=== PATIENT | female | born 1985 | race Caucasian/White ===

== ENCOUNTER 2016-04-19 10:48 | Day surgery (SDC) | payer MEDICAID ==
[~2016-04-19] VITALS: Ht 165.1 cm; Wt 80.3 kg
[~2016-04-19 10:48] MED LIST: ABILIFY10 MG; AEROCHAMBER1 DEV IH; ALBUTEROL2 PUFFS/17 IN; AMOXICOT500 MG PO; ATIVAN1 MG PO; BACTRIM DS 8001 TA1 PO; BACTRIM DS 8001 TAB PO; BACTROBAN2% TP; BENZONATATE100 MG PO; CEPHALEXIN500 MG PO; CIPRO 500MG TA500 MG PO; CYMBALTA60 MG PO; FLAGYL 500MG.500 MG PO; KEFLEX 500MG.500 MG PO; LORAZEPAM0.5 MG/TAB PO; LORTAB 5/500 501 TAB PO; MEDROL 4MG. DOSE4 MG PO; NAPROSYN500 M1 PO; NOMEDS XX; PHENERGAN25 M3 PO; PREDNISONE 10MG10 MG PO; PROPRANOLOL HCL20 MG PO; TESSALON PERLE200 MG PO; TRAZODONE 50MG50 MG; VIBRAMYCIN 100100 MG PO; VICODIN 5/500 T1 TAB PO; VISTARIL25 MG PO; VOLTAREN75 MG PO; WELLBUTRIN 150150 MG; WELLBUTRIN 150150 MG PO; WELLBUTRIN 75MG75 MG PO; ZYRTEC-D 12HR 51 TER PO
--- NOTE | 2016-04-19 12:35 | Operative Note ---
See Addendum Colonoscopy Procedure date: 04/19/16 Date of : 81 Procedure:Colonoscopy WITH POLYPECTOMY/BIOPSY Indications: Diarrhea Performing Provider: Beck Campbell Referrring Provider: ALAN Yo Sedation: Benadryl 50mg IV, versed 9mg, fentanyl 150mcg then convereted to MAC Procedure: Prior to the procedure, a history and physical exam was performed, and patient medications and allergies were reviewed. The risks and benefits of the procedure and the sedation options and risks were discussed with the patient. All questions were answered and informed consent was obtained. The patient was brought to the procedure room. Patient identification and proposed procedure were verified by the physician and the nurse. The patient was placed in a left lateral decubitus position and the scope was passed under direct vision. Throughout the procedure, the patient's blood pressure, pulse, and oxygen saturations were monitored continuously. The colonoscope was introduced through the anus and advanced to the terminal ileum with identification of the appendiceal orifice and ileocecal valve. The colonoscopy was performed without difficulty. The patient tolerated the procedure well. The quality of the bowel preparation was good. Findings: 1) TI normal - biopsied 2) Colon normal - biopsied, random 3) Two 4-5mm polyps sigmoid removed w/ snare polypectomy (cold) and retrieved 4) Retroflexed exam normal in rectum Immediate complications: None EBL (ml): 2 Impression: 1) Benign polyps in sigmoid/ f/u path 2) Normal colon Recommendations: 1) f/u pathology - repeat in 5-10 yr depending pn pathology 2) follow FODMAP diet, consider imodium regular dosing at 9535
[2016-04-19 14:18] VITALS: BP 107/69
== END 2016-04-19 13:21 | disposition home or self-care (01) ==
LOC: SDC 10:48
PROVIDERS: Internal Medicine Gastroenterology
PROC: 0DBB8ZX Excision of Ileum, Via Natural or Artificial Opening Endoscopic, Diagnostic (ICD-10-PCS; 2016-04-19)
PROC: 0DBE8ZX Excision of Large Intestine, Via Natural or Artificial Opening Endoscopic, Diagnostic (ICD-10-PCS; 2016-04-19)
PROC: 0DBN8ZX Excision of Sigmoid Colon, Via Natural or Artificial Opening Endoscopic, Diagnostic (ICD-10-PCS; principal; 2016-04-19 12:00)
DX: D12.5 Benign neoplasm of sigmoid colon (principal); R19.7 Diarrhea, unspecified

== ENCOUNTER 2016-12-05 08:59 | Emergency (ER) | payer MEDICAID ==
[~2016-12-05] VITALS: Ht 162.6 cm; Wt 72.6 kg
[~2016-12-05 08:59] MED LIST changes: +BROMFED DM COU118 ML PO; +BUSPAR 10MG TAB10 MG PO; +FLONASE 50 MCG16 GM; +PROZAC 20MG CAP20 MG PO; +SEROQUEL 25MG T25 MG PO; +VISTARIL25 M1 PO; +ZANTAC 150150 MG PO; +ZITHROMAX Z PA250 MG PO
--- OUTSIDE RECORDS SUMMARY | 2016-12-05 09:06 | External Medical Summary Rpt | CCD ---
Demographics Preferred Language Malaysian Marital Status Unknown Uatsdin Affiliation Unknown Race Unknown Ethnic Group Unknown Author Author LAZARUS Address Unknown Phone [email or web address] Purpose Continuity of Care Document - through 2016
--- OUTSIDE RECORDS SUMMARY | 2016-12-05 09:06 | External Medical Summary Rpt | CCD ---
Author Author , LAZARUS QIU Address Unknown Phone [email or web address] Care Team Providers Care Financial Operations Consultant Name Role Phone LILIBETH ANDREWS MD, Unavailable Unavailable LILIBETH Huntley III, MD, Filemon Schwartz III, MD Purpose Continuity of Care Document - 10-24-2012 through 2016 Problems Code Diagnosis DOS Provider Status 305.1 305.1 01-28-2013 [place] TOBACCO USE [facility] 558.9 558.9 01-28-2013 [facility] IT NEC 466.0 466.0 ACUTE 10-24-2012 [facility] F41.9 ANXIETY DISORDER, UNSPECIFIED H66.91 OTITIS MEDIA, UNSPECIFIED , RIGHT EAR K52.9 NONINFECTIV E GASTROENTER ITIS AND COLITIS, UNSPECIFIED M76.62 ACHILLES TENDINITIS, LEFT LEG R00.2 PALPITATION S R07.89 OTHER CHEST PAIN Allergies, Adverse Reactions, Alerts Type Allergy to substance Adverse Reaction to Substance Substance Reaction Severity INGREDIENT: NO KNOWN Unknown Unknown - NO KNOWN DRUG ALLERGY Medications Na ND Rx Da Fi Fi Am Da Di Ph RX Ph St me C No te ll ll ou ys ag ar # ys at rm s nt no ma ic us Or Da si cy ia de te s n re d ON 00 12 0 No DA 37 -1 NS 87 7- Lo ET 73 20 ng RO 29 13 er N 3 OD Ac T ti 4 ve MG TA BL ET Vital Signs 01-28-2013 09:03 Name Value Interpretat Reference Comment ion Range BP 72 mm[Hg] Diastolic BP Systolic 132 mm[Hg] Heart 110 /min Rate/Pulse O2% 96 % Respiratory 20 /min Rate 01-28-2013 08:30 Name Value Interpretat Reference Comment ion Range BP 88 mm[Hg] Diastolic BP Systolic 117 mm[Hg] Heart 106 /min Rate/Pulse O2% 96 % Respiratory 20 /min Rate 10-24-2012 18:55 Name Value Interpretat Reference Comment ion Range Body 98.5 [degF] Temperature BP 78 mm[Hg] Diastolic BP Systolic 134 mm[Hg] Heart 83 /min Rate/Pulse O2% 99 % Respiratory 17 /min Rate 10-24-2012 18:53 Name Value Interpretat Reference Comment ion Range Body 98.5 [degF] Temperature BP 78 mm[Hg] Diastolic BP Systolic 134 mm[Hg] Heart 83 /min Rate/Pulse O2% 99 % Respiratory 17 /min Rate Results Labs Lab Lab Date Result Refere Interp Status Commen Order Detail nces retati t Range on Streptococcus pyogenes Ag [Presence] in Unspecified specimen (06-29-2016 10:39) Strepto NOT NOTDETE complet coccus 0[address] ed pyogene 10:39 D s Ag [Presen ce] in Unspeci fied specime n B-HCG Ur Ql (01-28-2013 08:35) B-HCG 12-17-2 NEGATIV NEG complet Ur Ql 013 E ed 08:35 URINALYSIS/COMPLETE (01-28-2013 08:35) URINE 12-17-2 YELLOW YELLOW complet COLOR 013 ed 08:35 URINE 12-17-2 CLEAR CLEAR complet APPEARA 013 ed NCE 08:35 URINE 12-17-2 NEGATIV NEG complet GLUCOSE 013 E ed - 08:35 DIPSTIC K URINE 12-17-2 NEGATIV NEG complet BILIRUB 013 E ed IN - 08:35 DIPSTIC K URINE 12-17-2 NEGATIV NEG complet KETONE 013 E mg/dL ed 08:35 URINE 12-17-2 1.015 1.005-1 complet SPECIFI 013 UNK .030 ed C 08:35 GRAVITY URINE 12-17-2 NEGATIV NEG complet BLOOD 013 E ed 08:35 URINE 12-17-2 8.0 UNK 5.0-8.5 complet PH 013 ed 08:35 URINE 12-17-2 TRACE NEG complet PROTEIN 013 mg/dL ed - 08:35 DIPSTIC K URINE 12-17-2 0.2 NEG complet UROBILI 013 E.U./dL ed NOGEN - 08:35 DIPSTIC K URINE 12-17-2 NEGATIV NEG complet NITRATE 013 E ed - 08:35 DIPSTIC K URINE 01-28- NEGATIV NEG complet LEUK 013 E ed ESTERAS 08:35 E URINE 01-28- OCC 0 complet RBC 013 rbc/hpf ed 08:35 URINE 01-28-2 3-5 O complet WBC 013 wbc/hpf ed 08:35 URINE 01-28- 3-5 0-5 complet SQUAMOU 013 #/hpf ed S CELLS 08:35 Encounters Encounter Start End Date Code Location Performer Type Date Emergency PHOEBE ANDREWS MD (ER) 3 08:24 3 09:05 [facility] Emergency PHOEBE Schwartz (ER) 3 18:46 3 18:55 [place] Filemon Marvin
--- OUTSIDE RECORDS SUMMARY | 2016-12-05 09:06 | External Medical Summary Rpt | CCD ---
Demographics Preferred Language Vietnamese Marital Status Unknown Islam Affiliation Unknown Race Unknown Ethnic Group Unknown Author Author LAZARUS Address Unknown Phone [email or web address] Purpose Continuity of Care Document - through 2016
--- OUTSIDE RECORDS SUMMARY | 2016-12-05 09:06 | External Medical Summary Rpt | CCD ---
Author Author , LAZARUS QIU Address Unknown Phone [email or web address] Care Team Providers Care Distillery Supervisor Name Role Phone LILIBETH ANDREWS MD, Unavailable Unavailable LILIBETH Huntley III, MD, Filemon Schwartz III, MD Purpose Continuity of Care Document - 10-24-2012 through 2016 Problems Code Diagnosis DOS Provider Status 305.1 305.1 01-28-2013 [place] TOBACCO USE [facility] 558.9 558.9 01-28-2013 [facility] IT NEC 466.0 466.0 ACUTE 10-24-2012 [facility] F41.9 ANXIETY DISORDER, UNSPECIFIED H66.91 OTITIS MEDIA, [...] ANDREWS MD (ER) 3 08:24 3 09:05 [facility] Emergency PHOEBE Schwartz (ER) 3 18:46 3 18:55 [facility] Filemon Marvin
--- OUTSIDE RECORDS SUMMARY | 2016-12-05 09:07 | External Medical Summary Rpt | CCD ---
Demographics Preferred Language Danish Marital Status Unknown Faith Affiliation Unknown Race Unknown Ethnic Group Unknown Author Author , LAZARUS QIU Address Unknown Phone Immunization Unable to retrieve immunization data due to connection failure with Immunization Registry. Please try again later.
--- OUTSIDE RECORDS SUMMARY | 2016-12-05 09:07 | External Medical Summary Rpt ---
Author Author LAZARUS Magdalene, [employer] Organization [employer] Address Unknown Phone Unavailable Results CBC W Auto Differential panel in Blood Observa Value Referen Units Interpr Notes Date tion ce etation Range Basophils 0 - 0.2 K/MM3 Normal No Sep 14 inform2016 1:30 [#/volume on in PM ] in source Blood by data Automated count Basophils 0.1 - 2.0 % Normal No Sep 14 /100 informati 2016 1:30 leukocyte on in PM s in source Blood by data Automated count Eosinophi 0.0 - 0.4 K/mm3 Normal No Sep 14 ls ati 2016 1:30 [#/volume on in PM ] in source Blood by data Automated count Eosinophi 0.1 - % Normal No Sep 14 ls/100 12.0 informati 2016 1:30 leukocyte on in PM s in source Blood by data Automated count Granulocy 1.8 - 7.8 K/mm3 Normal No Sep 14 marcelino informati 2016 1:30 [#/volume on in PM ] in source Blood by data Automated count Granulocy 37.0 - % Normal No Sep 14 marcelino/100 80.0 informati 2016 1:30 leukocyte on in PM s in source Blood by data Automated count Hematocri 37.0 - % Normal No Sep 14 t [Volume 47.0 ati 2016 1:30 on in PM Fraction] source of Blood data Hemoglobi 12.2 - g/dL Normal No Sep 14 n 16.2 informati 2016 1:30 [Mass/vol on in PM ume] in source Blood data Lymphocyt 0.7 - 4.5 K/mm3 Normal No Sep 14 es informati 2016 1:30 [#/volume on in PM ] in source Unspecifi data ed specimen by Automated count Lymphocyt 10 - 50.0 % Normal No Sep 14 es informati 2016 1:30 [#/volume on in PM ] in source Unspecifi data ed specimen by Automated count Erythrocy 27 - 31.2 pg High No Sep 14 te mean informati 2016 1:30 corpuscul on in PM ar source hemoglobi data n [Entitic mass] Erythrocy 31.8 - g/dl Normal No Sep 14 te mean 35.4 informati 2016 1:30 corpuscul on in PM ar source hemoglobi data n concentra tion [Mass/vol ume] by Automated count Erythrocy 82.2 - fl Normal No Sep 14 te mean 97.8 informati 2016 1:30 corpuscul on in PM ar volume source [Entitic data volume] by Automated count Monocytes 0.1 - 1.0 K/mm3 Normal No Sep 14 informati 2016 1:30 [#/volume on in PM ] in source Blood by data Automated count Monocytes 1.7 - 9.3 % Normal No Sep 14 /100 informati 2016 1:30 leukocyte on in PM s in source Blood by data Automated count Platelet 7.4 - fl Low No Sep 14 mean 10.4 informati 2016 1:30 volume on in PM [Entitic source volume] data in Blood by Automated count Platelets 142 - 424 K/mm3 Normal No Sep 14 informati 2016 1:30 [#/volume on in PM ] in source Blood data Erythrocy 4.2 - 5.4 M/mm3 Normal No Sep 3 marcelino informati 2016 1:30 [#/volume on in PM ] in source Amniotic data fluid Erythrocy 11.5 - % Normal No Sep 14 te 17.5 informati 2016 1:30 distribut on in PM ion width source [Entitic data volume] by Automated count Leukocyte 4.8 - K/MM3 Normal No Sep 14 s 10.8 informati 2016 1:30 [#/volume on in PM ] in source Blood data Streptococcus pyogenes Ag [Presence] in Unspecified specimen Observa Value Referen Units Interpr Notes Date tion ce etation Range Strepto NOT NOTDETE No No LOT # June 18 coccus DETECTE CTED informa informa N/A EXP 2017 pyogene D tion in tion in DATE 10:39 s Ag source source N/A AM [Presen data data ce] in Unspeci fied specime n
--- OUTSIDE RECORDS SUMMARY | 2016-12-05 09:07 | External Medical Summary Rpt | CCD ---
Demographics Preferred Language Irish Marital Status Unknown Hoahaoism Affiliation Unknown Race Unknown Ethnic Group Unknown Author Author , LAZARUS QIU Address Unknown Phone Immunization Unable to retrieve immunization data due to connection failure with Immunization Registry. Please try again later.
[2016-12-05] MEDS ORDERED: SUDAFED 12HR120 MG PO (09:42)
[2016-12-05] MEDS ORDERED: AUGMENTIN 875-1 EACH PO (09:42)
--- NOTE | 2016-12-05 09:44 | Urgent Treatment Center Report ---
History of Present Issue Date/Time Seen by Provider 12/05/16 4100 Visit Reason Pt arrived:Walked Presenting Problem:PT IS C/O OF FLUID BEHIND LEFT EAR AND THE RIGHT EAR HAS STARTED RINGING THIS AM. PT HAD DENTAL PROCEDURE LAST WEEK. PT HAS TAKEN ZYRTEC , FLONASE, AND AMOXICILLIN. Location if Accident: Onset of symptoms date/time:/ or onset unknown for:MEDICAL HX UNKNOWN Have you (or family members/close friends) recently traveled outside the [place]? N If Yes, where/when: Have you had exposure to infectious disease within the past month? TB? Other? Specify: Patient state that she recently had dental work done and now having pain in the left ear. States that it feels like she has fluid behind her ear. States that both ears feel full and she has been having sinus pain and pressure. State that her sinuses are stopped up and thinks it may have her ears hurting. State that she has been on Amoxicillin and taking Zyrtec, and flonase but no relief ALLERGIES Coded Allergies: No Known Allergies (01/26/16) Home Medications Active Scripts Fluticasone Propionate (Flonase 50 Mcg Nasal [place]) 2 SPRAY NA DAILY #1 BOT Prov: 06/29/16 Hydroxyzine Pamoate (Vistaril 25MG CAP) 25 MG PO Q6HP PRN anxiety and nausea #6 CAP Prov: 09/14/16 Reported Medications Bupropion HCl (Bupropion HCl Sr 150mg) 150 MG PO DAILY Fluoxetine Hcl (Prozac 20MG Capsule(Generic)) 20 MG PO DAILY Buspirone Hcl (Buspar 10MG) 10 MG PO BID Ranitidine Hcl (Zantac) 150 MG PO BID History Medical History General CAD? No Angina: No [place]: No Hypertension? No Hyperlipidemia? No CHF? No DVT? No PE? No COPD? No Asthma? No Anemia? No GERD? Yes Gastric ulcers? No GI Bleed? No Hernia? No Thyroid Problems? No Hypothyroidism? No CVA? No Seizures? No Diabetes? No Renal Insuffiency? No UTI? No Stones? No BPH? No GB Disease: No Nephritic Syndrome? No Asplenia? No Hepatitis? No Sickle Cell Disease? No Arthritis? No Migraines? No Cataracts? No Glaucoma? No MRSA? No HIV? No TB? No Anxiety? Yes Depression? No Cancer? No More? 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 Physical Exam Vital Signs Vital Signs Date Time Temp Pulse Resp B/P Pulse O2 O2 Flow FiO2 Ox Delivery Rate 12/05 0924 99.1 73 20 123/78 99 General Appearance normal appearance, WD/WN, no apparent distress Ear, Nose, Throat sinus pain/drainage, nasal congestion, Left ear no redness TM buldging clear, Tenderness notes maxillary sinuses with yellowish green drainage Respiratory Status Yes: trachea midline, chest symmetrical, non tender chest. No: respiratory distress. Cardiovascular normal exam, regular rate/rhythm Neurologic alert, normal exam, oriented x 3 Medical Decision Making LABS/Meds/Orders Pt receiving controlled substance in ED? No Progress [facility] Progress Notes Comment Spoke with German from pharmacy on treatment options Agreed change medication from Amoxicillin to Augmentin and add Sudafed for 5 days Departure Departure Time of Disposition 0940 Disposition DC Home or Self Care(routine) Clinical Impression Primary Impression: Sinusitis Qualifiers: Sinusitis location: maxillary Chronicity: unspecified Qualified Code: J32.0 - Chronic maxillary sinusitis Condition STABLE Referrals Attila ARREOLA,Adrian Guzman (Family) Patient Instructions DI for Sinusitis, Sinusitis Additional Instructions Start antibiotic. Sinus infections may take 2-3 days to notice much improvement so be sure to use conservative measures as discussed for symptoms Ok to continue Sudafed Flonase 2 spray in each nostril daily to help with nasal congestion, sinus an ear pressure/inflammation Lots of Fluids Sleep elevated Humidifer/vaporizer Stop taking Amoxicillin and change to Augmentin FOllow up with family doctor if symptoms persist Discharge Counseling Counseled pt/family regarding diagnosis, medications/RX, home care, follow up needs Prescriptions Current Visit Scripts Amoxicillin/Potassium Clav (Augmentin 875-125 Tablet) 1 EACH PO BID #14 TAB Pseudoephedrine Hcl (Sudafed 12 Hour) 120 MG PO BID #10 TER at 0943
--- NOTE | 2016-12-05 09:44 | Urgent Treatment Center Report ---
History of Present Issue Date/Time Seen by Provider 12/05/16 0663 Visit Reason Pt arrived:Walked Presenting Problem:PT IS C/O OF FLUID BEHIND LEFT EAR AND THE RIGHT EAR HAS STARTED RINGING THIS AM. PT HAD DENTAL PROCEDURE LAST WEEK. PT HAS TAKEN ZYRTEC , FLONASE, AND AMOXICILLIN. Location if Accident: Onset of symptoms date/time:/ or onset unknown for:MEDICAL HX UNKNOWN Have you (or family members/close friends) recently traveled outside the [place]? N If Yes, where/when: Have you had exposure to infectious disease within the past month? TB? Other? Specify: Patient state that she recently had dental work done and now having pain in the left ear. States that it feels like she has fluid behind her ear. States that both ears feel full and she has been having sinus pain and pressure. State that her sinuses are stopped up and thinks it may have her ears hurting. State that she has been on Amoxicillin and taking Zyrtec, and flonase but no relief ALLERGIES Coded Allergies: No Known Allergies (01/26/16) Home Medications Active Scripts Fluticasone Propionate (Flonase 50 Mcg Nasal [place]) 2 SPRAY NA DAILY #1 BOT Prov: 06/29/16 Hydroxyzine Pamoate (Vistaril 25MG CAP) 25 MG PO Q6HP PRN anxiety and nausea #6 CAP Prov: 09/14/16 Reported Medications Bupropion HCl (Bupropion HCl Sr 150mg) 150 MG PO DAILY Fluoxetine Hcl (Prozac 20MG Capsule(Generic)) 20 MG PO DAILY Buspirone Hcl (Buspar 10MG) 10 MG PO BID Ranitidine Hcl (Zantac) 150 MG PO BID History Medical History General CAD? No Angina: No [place]: No Hypertension? No Hyperlipidemia? No CHF? No DVT? No PE? No COPD? No Asthma? No Anemia? No GERD? Yes Gastric ulcers? No GI Bleed? No Hernia? No Thyroid Problems? No Hypothyroidism? No CVA? No Seizures? No Diabetes? No Renal Insuffiency? No UTI? No Stones? No BPH? No GB Disease: No Nephritic Syndrome? No Asplenia? No Hepatitis? No Sickle Cell Disease? No Arthritis? No Migraines? No Cataracts? No Glaucoma? No MRSA? No HIV? No TB? No Anxiety? Yes Depression? No Cancer? No More? 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 Physical Exam Vital Signs Vital Signs Date Time Temp Pulse Resp B/P Pulse O2 O2 Flow FiO2 Ox Delivery Rate 12/05 0924 99.1 73 20 123/78 99 General Appearance normal appearance, WD/WN, no apparent distress Ear, Nose, Throat sinus pain/drainage, nasal congestion, Left ear no redness TM buldging clear, Tenderness notes maxillary sinuses with yellowish green drainage Respiratory Status Yes: trachea midline, chest symmetrical, non tender chest. No: respiratory distress. Cardiovascular normal exam, regular rate/rhythm Neurologic alert, normal exam, oriented x 3 Medical Decision Making LABS/Meds/Orders Pt receiving controlled substance in ED? No Progress [facility] Progress Notes Comment Spoke with German from pharmacy on treatment options Agreed change medication from Amoxicillin to Augmentin and add Sudafed for 5 days Departure Departure Time of Disposition 0940 Disposition DC Home or Self Care(routine) Clinical Impression Primary Impression: Sinusitis Qualifiers: Sinusitis location: maxillary Chronicity: unspecified Qualified Code: J32.0 - Chronic maxillary sinusitis Condition STABLE Referrals Attila ARREOLA,Adrian Guzman (Family) Patient Instructions DI for Sinusitis, Sinusitis Additional Instructions Start antibiotic. Sinus infections may take 2-3 days to notice much improvement so be sure to use conservative measures as discussed for symptoms Ok to continue Sudafed Flonase 2 spray in each nostril daily to help with nasal congestion, sinus an ear pressure/inflammation Lots of Fluids Sleep elevated Humidifer/vaporizer Stop taking Amoxicillin and change to Augmentin FOllow up with family doctor if symptoms persist Discharge Counseling Counseled pt/family regarding diagnosis, medications/RX, home care, follow up needs Prescriptions Current Visit Scripts Amoxicillin/Potassium Clav (Augmentin 875-125 Tablet) 1 EACH PO BID #14 TAB Pseudoephedrine Hcl (Sudafed 12 Hour) 120 MG PO BID #10 TER at 0943
[2016-12-05 09:49] VITALS: BP 123/78
== END 2016-12-05 09:54 | disposition home or self-care (01) ==
LOC: UTC 08:59
DX: J32.0 Chronic maxillary sinusitis (principal); F17.210 Nicotine dependence, cigarettes, uncomplicated; K21.9 Gastro-esophageal reflux disease without esophagitis

== ENCOUNTER 2017-01-08 16:19 | Emergency (ER) | payer MEDICAID ==
[~2017-01-08] VITALS: Ht 162.6 cm; Wt 72.7 kg
[~2017-01-08 16:19] MED LIST changes: +AUGMENTIN 875-1 EACH PO; +SUDAFED 12HR120 MG PO
--- OUTSIDE RECORDS SUMMARY | 2017-01-08 16:24 | External Medical Summary Rpt | CCD ---
Demographics Preferred Language Argentine Marital Status Unknown Amish Affiliation Unknown Race Unknown Ethnic Group Unknown Author Author , EVERETT QIU Address Unknown Phone Immunization No patient found.
--- OUTSIDE RECORDS SUMMARY | 2017-01-08 16:24 | External Medical Summary Rpt | CCD ---
Author Author [employer] Organization [employer] Address Unknown Phone Unavailable Purpose Continuity of Care Document - through 2016
--- OUTSIDE RECORDS SUMMARY | 2017-01-08 16:24 | External Medical Summary Rpt | CCD ---
Author Author , LAZARUS QIU Address Unknown Phone [email or web address] Care Team Providers Care Flake Cutter Operator Name Role Phone LILIBETH ANDREWS MD, Unavailable Unavailable LILIBETH Huntley III, MD, Filemon Schwartz III, MD Purpose Continuity of Care Document - 10-24-2012 through 2016 Problems Code Diagnosis DOS Provider Status 305.1 305.1 01-28-2013 [place] TOBACCO USE [facility] 558.9 558.9 01-28-2013 [facility] IT NEC 466.0 466.0 ACUTE 10-24-2012 [facility] F41.9 ANXIETY DISORDER, UNSPECIFIED H66.91 OTITIS MEDIA, [...] E ed - 08:35 DIPSTIC K URINE 01-28-2 NEGATIV NEG complet LEUK 013 E ed ESTERAS 08:35 E URINE 01-28-2 OCC 0 complet RBC 013 rbc/hpf ed 08:35 URINE 01-28-2 3-5 O complet WBC 013 wbc/hpf ed 08:35 URINE 01-28-2 3-5 0-5 complet SQUAMOU 013 #/hpf ed S CELLS 08:35 Encounters Encounter Start End Date Code Location Performer Type Date Emergency PHOEBE ANDREWS MD (ER) 3 08:24 3 09:05 [facility] Emergency PHOEBE Schwartz (ER) 3 18:46 3 18:55 [facility] Filemon Marvin
--- OUTSIDE RECORDS SUMMARY | 2017-01-08 16:24 | External Medical Summary Rpt | CCD ---
Demographics Preferred Language Nauruan Marital Status Unknown Shinto Affiliation Unknown Race Unknown Ethnic Group Unknown Author Author , EVERETT QIU Address Unknown Phone Immunization No patient found.
--- OUTSIDE RECORDS SUMMARY | 2017-01-08 16:24 | External Medical Summary Rpt | CCD ---
Author Author , LAZARUS QIU Address Unknown Phone [email or web address] Care Team Providers Care Seedling Puller Name Role Phone LILIBETH ANDREWS MD, Unavailable Unavailable LILIBETH Huntley III, MD, Filemon Schwartz III, MD Purpose Continuity of Care Document - 10-24-2012 through 2016 Problems Code Diagnosis DOS Provider Status 305.1 305.1 01-28-2013 [place] TOBACCO USE [facility] 558.9 558.9 01-28-2013 [facility] IT NEC 466.0 466.0 ACUTE 10-24-2012 [facility] F41.9 ANXIETY DISORDER, UNSPECIFIED H66.91 OTITIS MEDIA, [...] ANDREWS MD (ER) 3 08:24 3 09:05 [facility] Emergency PHOEBE Schwartz (ER) 3 18:46 3 18:55 [facility] Filemon Marvin
--- NOTE | 2017-01-08 17:28 | Urgent Treatment Center Report ---
History of Present Issue Date/Time Seen by Provider 01/08/17 4180 Visit Reason Pt arrived:Walked Presenting Problem:PT C/O OF CHEST CONGESTION AND COUGH X'S 2 WKS Location if Accident: Onset of symptoms date/time:/ or onset unknown for:MEDICAL HX UNKNOWN Have you (or family members/close friends) recently traveled outside the [place]? N If Yes, where/when: Have you had exposure to infectious disease within the past month? TB? Other? Specify: Patient state that she has been having cough and congestion for 2 weeks State that she is having pain in her upper back area state that she thinks she may have pulled something State that when she moves it feels like her muscle is tight and hurts when she moves ALLERGIES Coded Allergies: No Known Allergies (01/26/16) Home Medications Active Scripts Fluticasone Propionate (Flonase 50 Mcg Nasal [place]) 2 SPRAY NA DAILY #1 BOT Prov: 06/29/16 Amoxicillin/Potassium Clav (Augmentin 875-125 Tablet) 1 EACH PO BID #14 TAB Prov: 12/05/16 Pseudoephedrine Hcl (Sudafed 12 Hour) 120 MG PO BID #10 TER Prov: 12/05/16 Hydroxyzine Pamoate (Vistaril 25MG CAP) 25 MG PO Q6HP PRN anxiety and nausea #6 CAP Prov: 09/14/16 Reported Medications Bupropion HCl (Bupropion HCl Sr 150mg) 150 MG PO DAILY Fluoxetine Hcl (Prozac 20MG Capsule(Generic)) 20 MG PO DAILY Buspirone Hcl (Buspar 10MG) 10 MG PO BID Ranitidine Hcl (Zantac) 150 MG PO BID History Medical History General CAD? No Angina: No MD: No Hypertension? No Hyperlipidemia? No CHF? No DVT? No PE? No COPD? No Asthma? No Anemia? No GERD? Yes Gastric ulcers? No GI Bleed? No Hernia? No Thyroid Problems? No Hypothyroidism? No CVA? No Seizures? No Diabetes? No Renal Insuffiency? No UTI? No Stones? No BPH? No GB Disease: No Nephritic Syndrome? No Asplenia? No Hepatitis? No Sickle Cell Disease? No Arthritis? No Migraines? No Cataracts? No Glaucoma? No MRSA? No HIV? No TB? No Anxiety? Yes Depression? No Cancer? No More? 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 Respiratory cough, denies shortness of breath, denies wheezing Musculoskeletal back pain Physical Exam Vital Signs Vital Signs Date Time Temp Pulse Resp B/P Pulse O2 O2 Flow FiO2 Ox Delivery Rate 01/08 1648 98.1 89 20 127/73 98 General Appearance normal appearance, WD/WN, no apparent distress Ear, Nose, Throat Throat red, irritated drainage noted Respiratory Status Yes: trachea midline, chest symmetrical, non tender chest. No: respiratory distress. Lung Sounds bilateral: normal breath sounds, lungs clear. Cardiovascular normal exam, regular rate/rhythm, no peripheral edema Back normal inspection, no CVA tenderness, gait normal, muscle spasm, Muscle spasm felt on left shoulder blade area Neurologic alert, normal exam, oriented x 3 Medical Decision Making LABS/Meds/Orders Pt receiving controlled substance in ED? No Departure Departure Time of Disposition 1742 Disposition DC Home or Self Care(routine) Clinical Impression Primary Impression: Muscle spasm Condition STABLE Referrals Attila ARREOLA,Adrian Guzman (Family): 2 Days-Call Office if no improvement Patient Instructions DI for Muscle Spasm Additional Instructions Take medication as prescribed Follow up with family doctor Return if needed If pain persists follow up with family doctor Discharge Counseling Counseled pt/family regarding diagnosis, medications/RX, home care, follow up needs Prescriptions Current Visit Scripts Cyclobenzaprine Hcl (Flexeril) 10 MG PO TID #15 TAB Ibuprofen (Ibuprofen 800MG) 800 MG PO QIDP PRN pain #30 TAB at 1742
--- NOTE | 2017-01-08 17:28 | Urgent Treatment Center Report ---
History of Present Issue Date/Time Seen by Provider 01/08/17 2512 Visit Reason Pt arrived:Walked Presenting Problem:PT C/O OF CHEST CONGESTION AND COUGH X'S 2 WKS Location if Accident: Onset of symptoms date/time:/ or onset unknown for:MEDICAL HX UNKNOWN Have you (or family members/close friends) recently traveled outside the [place]? N If Yes, where/when: Have you had exposure to infectious disease within the past month? TB? Other? Specify: Patient state that she has been having cough and congestion for 2 weeks State that she is having pain in her upper back area state that she thinks she may have pulled something State that when she moves it feels like her muscle is tight and hurts when she moves ALLERGIES Coded Allergies: No Known Allergies (01/26/16) Home Medications Active Scripts Fluticasone Propionate (Flonase 50 Mcg Nasal [place]) 2 SPRAY NA DAILY #1 BOT Prov: 06/29/16 Amoxicillin/Potassium Clav (Augmentin 875-125 Tablet) 1 EACH PO BID #14 TAB Prov: 12/05/16 Pseudoephedrine Hcl (Sudafed 12 Hour) 120 MG PO BID #10 TER Prov: 12/05/16 Hydroxyzine Pamoate (Vistaril 25MG CAP) 25 MG PO Q6HP PRN anxiety and nausea #6 CAP Prov: 09/14/16 Reported Medications Bupropion HCl (Bupropion HCl Sr 150mg) 150 MG PO DAILY Fluoxetine Hcl (Prozac 20MG Capsule(Generic)) 20 MG PO DAILY Buspirone Hcl (Buspar 10MG) 10 MG PO BID Ranitidine Hcl (Zantac) 150 MG PO BID History Medical History General CAD? No Angina: No NE: No Hypertension? No Hyperlipidemia? No CHF? No DVT? No PE? No COPD? No Asthma? No Anemia? No GERD? Yes Gastric ulcers? No GI Bleed? No Hernia? No Thyroid Problems? No Hypothyroidism? No CVA? No Seizures? No Diabetes? No Renal Insuffiency? No UTI? No Stones? No BPH? No GB Disease: No Nephritic Syndrome? No Asplenia? No Hepatitis? No Sickle Cell Disease? No Arthritis? No Migraines? No Cataracts? No Glaucoma? No MRSA? No HIV? No TB? No Anxiety? Yes Depression? No Cancer? No More? 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 Respiratory cough, denies shortness of breath, denies wheezing Musculoskeletal back pain Physical Exam Vital Signs Vital Signs Date Time Temp Pulse Resp B/P Pulse O2 O2 Flow FiO2 Ox Delivery Rate 01/08 1648 98.1 89 20 127/73 98 General Appearance normal appearance, WD/WN, no apparent distress Ear, Nose, Throat Throat red, irritated drainage noted Respiratory Status Yes: trachea midline, chest symmetrical, non tender chest. No: respiratory distress. Lung Sounds bilateral: normal breath sounds, lungs clear. Cardiovascular normal exam, regular rate/rhythm, no peripheral edema Back normal inspection, no CVA tenderness, gait normal, muscle spasm, Muscle spasm felt on left shoulder blade area Neurologic alert, normal exam, oriented x 3 Medical Decision Making LABS/Meds/Orders Pt receiving controlled substance in ED? No Departure Departure Time of Disposition 1742 Disposition DC Home or Self Care(routine) Clinical Impression Primary Impression: Muscle spasm Condition STABLE Referrals Attila ARREOLA,Adrian Guzman (Family): 2 Days-Call Office if no improvement Patient Instructions DI for Muscle Spasm Additional Instructions Take medication as prescribed Follow up with family doctor Return if needed If pain persists follow up with family doctor Discharge Counseling Counseled pt/family regarding diagnosis, medications/RX, home care, follow up needs Prescriptions Current Visit Scripts Cyclobenzaprine Hcl (Flexeril) 10 MG PO TID #15 TAB Ibuprofen (Ibuprofen 800MG) 800 MG PO QIDP PRN pain #30 TAB at 174
[2017-01-08] MEDS ORDERED: IBUPROFEN800 MG PO (17:46)
[2017-01-08] MEDS ORDERED: FLEXERIL10 MG PO (17:46)
[2017-01-08 17:55] VITALS: BP 130/75
== END 2017-01-08 17:56 | disposition home or self-care (01) ==
LOC: UTC 16:19
DX: M62.830 Muscle spasm of back (principal); F41.9 Anxiety disorder, unspecified

== ENCOUNTER → 2017-01-10 | Outpatient (CLI) | payer MEDICAID ==
[~2017-01-10] MED LIST changes: +FLEXERIL10 MG PO; +IBUPROFEN800 MG PO
[2017-01-10 16:35] LABS: AMPHETAMINES/METAMPHETAMINES NEGATIVE ng/mL (<1000)
== END ==
LOC: LAB 15:44
PROVIDERS: Nurse Practitioner Family
DX: Z79.899 Other long term (current) drug therapy (principal)